=== PATIENT | female | born 1950 | race Caucasian/White ===

== ENCOUNTER 2024-07-22 15:44 | Emergency (ER) | payer OTHER ==
--- OUTSIDE RECORDS SUMMARY | 2024-07-22 15:48 | XMS REPORT | Continuity of Care Document ---
Author Name Unknown Address [address] [facility] [address] [place] [address] [facility] Address [address] [facility] [address] [place] [address] Care Team Providers Care Seat Cover Maker Name Role Phone PCP, PATIENT DOES NOT HAVE A Primary Care Physic vipin Unavailable RACHAEL LEZAMA Attending Clinician Unavailable KENY ACEVEDO Attending Clinician Unavailable Keny Acevedo MD Attending Clinician [phone] Royer Garcia Attending Clinician GC_GCBZW_Kadiyala_S Attending Clinician Unavaila deepak Garcia_Amauri Attending Clinician Unavailable Beata Garcia Attending Clinician Kim Sanford MD Attending Clinician [phone] Ana Maria Navas Attending Clinician [phone] ANA MARIA BROWN Attending Clinician Unavailabl e Doctor Unassigned, Slick Attending Clinician Francisco Palomo DO Attending Clinician [phone] RADIOLOGY Attending Clinician Unavailable KIM CASTELLON Attending Clinician Silvino Kwon MD Attending Clinician [phone] SILVINO EVANS Attending Clinician Unavaildayo e Radiology Attending Clinician Unavailable Kim Castellon MD Attending Clinician + [phone] GC_GCBZW_Kadiyala_S Admitting Clinician Unavaila deepak Dearodriguez_C Admitting Clinician Unavailable Payers Payer Name Policy Type Policy Number Effective Date Expirati on Date Source [employer] MEDICARE ADVANTAGE [id number] 2020 00:00:00 [employer] MEDICARE ADVANTAGE PLAN [id number] 2023 00:00:00 [employer] (MEDICARE REPLACEMENT HMO) [id number] 2022 00:00:00 Problems Condition Name Condition Details Condition Category Status Onset Date Resolution Date Last Treatment Date Treating Clinician Comments Source 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 Active 2018-05 00:00: 00 [facility] Episodic cluster headache, not intractabl e Episodic cluster headache, not intractabl e Disease Active 11-13 00:00: 00 [facility] Muscle spasm Muscle spasm Disease Active 10-12 00:00: 00 [facility] Vaginismus Vaginismus Disease Active 10-12 00:00: 00 [facility] Allergies, Adverse Reactions, Alerts Allergy Name Allergy Type Status Severity Reaction(s) Onset Date Inactive Date Treating Clinician Comments Source MECLIZIN E DRUG INGREDI Active Rash 07-07 00:00: 00 [facility] Meclizin e Propensi ty to adverse reaction s Active Rash 07-07 00:00: 00 [facility] Social History Social Habit Start Date Stop Date Quantity Comments Source Exposure to SARS-CoV-2 (event) Not sure [facility]coholic beverage intake 2021-05-05 00:00:00 2021-05-05 00:00:00 Current non-drinker of alcohol (finding) [facility] Alcohol intake 2021-05-05 00:00:00 2021-05-05 00:00:00 Current non-drinker of alcohol (finding) [facility] History of Social function 2018-12-08 00:00:00 2018-12-08 00:00:00 [facility] Tobacco use and exposure 2017-02-04 00:00:00 2017-02-04 00:00:00 Smokeless tobacco non-user [facility] Sex assigned at 1950 00:00:00 1950 00:00:00 [facility] Smoking Status Start Date Stop Date Source Never smoked tobacco [facility] Medications Ordered Medication Name Filled Medication Name Start Date Stop Date Current Medication? Ordering Clinician Indication Dosage Frequency Signature (SIG) Comments Components Source cyclobenzap rine 5 mg tablet 2020-05 00:00: 00 Yes [id number] 4 5mg Take 1 tablet by mouth at bedtime. [facility] Diclofenac Sodium (VOLTAREN) 1 % gel 2020-05 00:00: 00 Yes [id number] 4 Apply to area(s) 4 (four) times daily. [facility] aspirin 81 mg chewable tablet 2020-05 17:46: 58 Yes 81mg Take 81 mg by mouth at bedtime. [facility] naproxen 500 mg tablet 2020-05 00:00: 00 Yes [id number] 500mg Take 1 tablet by mouth 2 (two) times daily with meals. [facility] donepezil (ARICEPT) 10 mg tablet 01-24 09:34: 13 Yes 10mg Take 10 mg by mouth at bedtime. [facility] memantine (NAMENDA) 10 mg tablet 01-24 09:34: 13 Yes 10mg Take 10 mg by mouth 2 (two) times daily. [facility] DULoxetine 20 mg capsule 01-02 00:00: 00 Yes 20mg 20 mg. [facility] potassium chloride 10 mEq CR tablet 12-12 00:00: 00 Yes 10{tbl} 10 tablets. [facility] traMADol 50 mg tablet 2018-05 007 00:00: 00 05-05 00:00 :00 No [id number] 50mg Take 1 tablet by mouth every 6 (six) hours as needed for Pain (scale 4-6). [facility] losartan 50 mg tablet 01-02 00:00: 00 Yes [id number] 50mg Take 1 tablet by mouth daily. [facility] hydroCHLORO thiazide 12.5 mg capsule 01-02 00:00: 00 Yes [id number] 12.5mg Take 1 capsule by mouth daily. [facility] amlodipine- benazepril 10-20 mg per capsule 09-07 00:00: 00 Yes [id number] TAKE 1 CAPSULE EVERY DAY [facility] atenolol 50 mg tablet 09-07 00:00: 00 Yes [id number] TAKE 1 TABLET EVERY DAY [facility] furosemide 40 mg tablet 09-07 00:00: 00 Yes [id number] TAKE 1 TABLET EVERY DAY [facility] KCL 10 mEq tablet 09-07 00:00: 00 Yes [id number] TAKE 1 TABLET EVERY DAY [facility] oxybutynin chloride 5 mg tablet 09-07 00:00: 00 Yes [id number] TAKE 1 TABLET EVERY DAY [facility] SERTraline 100 mg tablet 09-07 00:00: 00 Yes [id number] 150mg Take 1.5 tablets by mouth daily. [facility] omeprazole 40 mg capsule 09-07 00:00: 00 Yes [id number] 40mg Take 1 capsule by mouth daily. [facility] albuterol 2.5 mg /3 mL (0.083 %) nebulizer solution 07-07 00:00: 00 Yes [id number] 2.5mg Inhale 3 mL every 6 (six) hours as needed for Wheezing or Shortness of Breath. [facility] albuterol 90 mcg/actuati on inhaler 09-16 00:00: 00 Yes [id number] 2{puff} Inhale 2 Puffs every 4 (four) hours as needed for Wheezing or Shortness of Breath. [facility] Vital Signs Vital Name Observation Time Observation Value Comments S ousmane Systolic blood pressure 2021-05-05 22:55:00 165 mm[Hg] [facility] Diastolic blood pressure 2021-05-05 22:55:00 86 mm[Hg] [facility] Heart rate 2021-05-05 22:54:00 76 /min [facility] Body temperature 2021-05-05 22:54:00 37.22 Gaby [facility] Respiratory rate 2021-05-05 22:54:00 20 /min [facility] Body height 2021-05-05 22:54:00 144.8 cm [facility] Body weight 2021-05-05 22:54:00 85.911 kg [facility] BMI 2021-05-05 22:54:00 40.99 kg/m2 [facility] Oxygen saturation in Arterial blood by Pulse oximetry 2021-05-05 22:54:00 98 /min [facility] Encounters Start Date/Time End Date/Time Encounter Type Admission Type Attending Clinicians Care Facility Care Department Encounter ID Source 2020-09-14 04:23:49 Outpatient RACHAEL LEZAMA [facility] [id number] [facility] 2023-10-25 12:22:00 2023-10-25 12:40:00 Emergency X KENY ACEVEDO [facility] ERT [id number] [facility] 2023-10-25 12:22:00 2023-10-25 12:40:00 Emergency Kristina, Keny [facility] 1.2.840.114 350.1.13.10 4.2.7.2.686 [id number] [facility] 2023-06-21 16:00:00 2023-06-21 17:00:00 Annual D2Me Royer Garcia 2.16.840. [id number] [id number] [facility] 2023-03-10 00:00:00 2023-03-10 00:00:00 Outpatient GC_GCBZW_Ka diyala_S PRIV PRIV [id number] [facility] 2023-01-20 00:00:00 2023-01-20 00:00:00 Outpatient Deavers_C AMY DM [id number] [facility] 2022-12-18 14:00:00 2022-12-18 14:30:00 CAV Revisit: Gap Closure & Clinical Check-in Beata Garcia 2.16.840. [id number] [id number] [facility] 2022-12-08 00:00:00 2022-12-08 00:00:00 Outpatient Deavers_C DMG DMG [id number] [facility] 2022-08-24 00:00:00 2022-08-24 00:00:00 Outpatient DMG DMG [id number] [facility] 2022-08-24 00:00:00 2022-08-24 00:00:00 Outpatient DMG DMG [id number] [facility] 2022-06-24 17:30:00 2022-06-24 18:30:00 CAV Beata Garcia 2.16.840. [id number] 2.16.840.1. [id number] DELMIS [facility] 2022-06-19 00:00:00 2022-06-19 00:00:00 Outpatient DMG DMG [id number] [facility] 2022-03-10 00:00:00 2022-03-10 00:00:00 Outpatient DMG DMG [id number] [facility] 2021-05-05 17:00:00 2021-05-05 17:20:00 [facility] 1.2.840.114 350.1.13.10 4.2.7.2.686 [id number] [facility] 2021-05-05 17:00:00 2021-05-05 17:00:00 Outpatient Willie BROWN [facility] [id number] [facility] 2021-05-05 00:00:00 2021-05-05 00:00:00 Orders Only Doctor Unassigned, Slick [facility] 1..114 350.1.13.10 4.2.7.2.686 [id number] [facility] 2021-04-05 18:00:00 2021-04-05 18:08:19 Outpatient R PEG BROWNTANY [facility] [id number] [facility] 2021-04-05 17:39:59 2021-04-05 18:08:19 Urgent Care [facility] 1.84.114 350.1.13.10 4.2.7.2.686 [id number] [facility] 2020-07-15 00:00:00 2020-07-15 00:00:00 Patient Outreach Francisco Salas [facility] 1.84.114 350.1.13.10 4.2.7.2.686 [id number] [facility] 2020-07-03 00:00:00 2020-07-03 00:00:00 Outpatient R RADIOLOGY [facility] [id number] [facility] 2020-06-20 08:00:00 2020-06-20 08:00:00 Outpatient R KIM CASTELLON [facility] [id number] [facility] 2020-01-25 09:17:23 2020-01-25 10:07:07 Office Visit Silvino Evans [facility] 1.84.114 350.1.13.10 4.2.7.2.686 [id number] [facility] 2020-01-25 09:15:00 2020-01-25 09:15:00 Outpatient R SILVINO EVANS [facility] [id number] [facility] 2020-01-23 00:00:00 2020-01-23 00:00:00 Orders Only Doctor Unassigned, Slick [facility] 1.2.840.114 350.1.13.10 4.2.7.2.686 [id number] [facility] 2019-12-13 14:55:16 2019-12-13 23:59:00 Hospital Encounter Radiology [facility] 1.2.840.114 350.1.13.10 4.2.7.2.686 [id number] 2019-12-13 14:55:16 2019-12-13 23:59:00 Hospital Encounter Radiology [facility] 1.2.840.114 350.1.13.10 4.2.7.2.686 [id number] [facility] 2019-12-13 00:00:00 2019-12-13 00:00:00 Outpatient R RADIOLOGY [facility] [id number] [facility] 2019-01-02 00:00:00 2019-01-02 00:00:00 Refill Yuniorarabella [facility] 1.2840.114 350.1.13.10 4.2.7.2.686 [id number] 2019-01-02 00:00:00 2019-01-02 00:00:00 Refill Yuniorarabella [facility] 1.2840.114 350.1.13.10 4.2.7.2.686 [id number] [facility] 2018-12-27 00:00:00 2018-12-27 00:00:00 Telephone Jamison [facility] 1.2840.114 350.1.13.10 4.2.7.2.686 [id number] 2018-12-27 00:00:00 2018-12-27 00:00:00 Telephone Yuniorarabella [facility] 1.2840.114 350.1.13.10 4.2.7.2.686 [id number] [facility] 2018-12-21 00:00:00 2018-12-21 00:00:00 Telephone Kim Castellon [facility] 1.2.840.114 350.1.13.10 4.2.7.2.686 [id number] 2018-12-21 00:00:00 2018-12-21 00:00:00 Telephone Kim Castellon [facility] 1.2.840.114 350.1.13.10 4.2.7.2.686 [id number] [facility] 2018-12-16 10:00:00 2018-12-16 23:59:00 Hospital Encounter Jamison [facility] 1.2.840.114 350.1.13.10 4.2.7.2.686 [id number] 2018-12-16 10:00:00 2018-12-16 23:59:00 Hospital Encounter Jamison [facility] 1.2.840.114 350.1.13.10 4.2.7.2.686 [id number] [facility] 2018-12-16 00:00:00 2018-12-16 00:00:00 Orders Only Doctor Unassigned, Slick [facility] 1.2.840.114 350.1.13.10 4.2.7.2.686 [id number] 2018-12-16 00:00:00 2018-12-16 00:00:00 Telephone Jamison [facility] 1.2.840.114 350.1.13.10 4.2.7.2.686 [id number] 2018-12-16 00:00:00 2018-12-16 00:00:00 Orders Only Doctor Unassigned, Slick [facility] 1.2.840.114 350.1.13.10 4.2.7.2.686 [id number] [facility] 2018-12-16 00:00:00 2018-12-16 00:00:00 Telephone Kim Castellon [facility] 1.2.840.114 350.1.13.10 4.2.7.2.686 [id number] [facility] 2018-12-13 00:00:00 2018-12-13 00:00:00 Telephone Kim Castellon [facility] 1.2.840.114 350.1.13.10 4.2.7.2.686 [id number] 2018-12-13 00:00:00 2018-12-13 00:00:00 Telephone Kim Castellon [facility] 1.2.840.114 350.1.13.10 4.2.7.2.686 [id number] [facility] 2018-12-12 00:00:00 2018-12-12 00:00:00 Refill Kim Castellon [facility] 1.2.840.114 350.1.13.10 4.2.7.2.686 [id number] 2018-12-12 00:00:00 2018-12-12 00:00:00 Refill Jamison [facility] 1.2840.114 350.1.13.10 4.2.7.2.686 [id number] [facility] 2018-12-08 10:20:30 2018-12-08 10:48:37 Office Visit Jamison [facility] 1.2.840.114 350.1.13.10 4.2.7.2.686 [id number] 2018-12-08 10:20:30 2018-12-08 10:48:37 Office Visit Kim Castellon [facility] 1.2840.114 350.1.13.10 4.2.7.2.686 [id number] [facility] 2018-12-08 00:00:00 2018-12-08 00:00:00 Orders Only Doctor Unassigned, Slick [facility] 1.2840.114 350.1.13.10 4.2.7.2.686 [id number] [facility] Notes Date/Time Note Provider Source 2023-10-25 12:23:20 Called patient from hospital for behavioral medicine at 7 minutes after arrival and registration said she decided to leave. LWBS Shiva Viera RN [facility] 2023-10-25 12:14:00 [facility] Emergency Department Note Patient Name: Shasha Kuo Date of : 1950 73 year old female Treatment Room: Room/bed info not found Primary Care Physician: No primary care provider on file. Patient left prior to triage after being in the ER rica for 7 minutes, Electronically signed by: Keny Acevedo MD 10/25/23 1227 [facility] EMERGENCY PHYSICIAN STAFF [facility]
[2024-07-22] MEDS ORDERED: ONDANSETRON 4 MG/2 ML VIAL ONE (16:01)
[2024-07-22] MEDS ORDERED: MORPHINE 4 MG/ML SYR ONE (16:02)
[2024-07-22 16:31] LABS: Absolute Eosinophils 0.1 K/uL (0-0.5); Absolute Lymphocytes (CBC) 2.4 K/uL (0.7-4.9); Absolute Monocytes 0.6 K/uL (0.1-1.3); Absolute Neutrophil 4.1 K/uL (1.8-8.0); Basophils % 0.3 % (0-1.3); Eosinophils % 1.7 % (0-4.4); Hematocrit 37.2 % (36.0-45.0); Hemoglobin 12.7 g/dL (12.0-15.0); Lymphocytes % 33.6 % (15.3-44.8); MCH 27.7 pg (27.0-35.0); MCHC 34.2 g/dL (32.0-36.0); MPV 8.6 fL (7.6-11.3); Neutrophils % 56.4 % (41.7-73.7); Platelets 287 thou/uL (152-406); RBC Red Blood Cell Count 4.59 M/uL (3.86-4.86); Red Cell Distribution Width 14.8 % (12.1-15.2)
--- NOTE | 2024-07-22 16:46 | RAD REPORT ---
EXAMINATION: CT ABDOMEN AND PELVIS WITHOUT CONTRAST CLINICAL INDICATION: FLANK PAIN TECHNIQUE: CT abdomen and pelvis was performed, without IV contrast, as per department protocol. Axia l, sagittal and coronal reconstructions were obtained. One or more of the following dose reduction techniques were used: Automated exposure control, adjustment of the mA and kV according to the patien t size, and iterative reconstruction. Unless otherwise specified, incidental findings do not require dedicated imaging follow-up. COMPARISON: No prior exam. FINDINGS: The lack of intravenous contrast limits the sensitivity of this exam for evaluation of solid visceral organs, vascular structures, and retroperitoneum. LOWER CHEST: The visualized lung bases are clear. LIVER:Normal in size and contour. No focal lesion. Cholecystectomy clips. SPLEEN: Normal size. No focal lesion. PANCREAS: No mass, ductal dilation, or [place]-pancreatic fluid. ADRENALS: Normal; no mass. KIDNEYS AND URETERS: Normal size and contour. No hydronephrosis. URINARY BLADDER: Normal contour. GASTROINTESTINAL TRACT: No evidence of bowel obstruction, significant free fluid, free air or abscess . Prominent sigmoid diverticulosis coli is present with moderate stool in the colon. APPENDIX: Appendix not visualized, but no inflammatory changes in region of appendix. LYMPH NODES: No lymphadenopathy. MUSCULOSKELETAL: Mild to moderate lower lumbar spondylosis. ADDITIONAL FINDINGS: None. IMPRESSION: No acute or concerning abnormalities in the abdomen or pelvis, with evaluation limited by lack of IV contrast.
[2024-07-22 16:48] LABS: Albumin 3.8 g/dL (3.4-5.0); Albumin/Globulin Ratio 1.1 (1.1-1.8); Anion Gap 8.7 mEq/L (5.0-15.0); Bilirubin Total 0.4 mg/dL (0.2-1.0); Globulin 3.6 g/dL (2.3-3.5); Potassium 3.7 mEq/L (3.5-5.1); Protein, Total 7.4 g/dL (6.4-8.2)
[2024-07-22 17:20] LABS: Specific Gravity > 1.030 (1.005-1.030); Sqamous Epithelial <5 /HPF (None Seen); Urine Bacteria <20 /HPF (<20); Urine Bilirubin NEGATIVE (Negative); Urine Blood Trace (Negative); Urine Clarity Turbid (Clear); Urine Color Yellow (Yellow); Urine Crystals Unidentified Few /HPF (None Seen); Urine Culture Reflex Order NOT NEEDED; Urine Glucose NEGATIVE (Negative); Urine Ketones TRACE (Negative); Urine Microscopic Reflex YN ORDER UMIC; Urine Mucus 1+ /HPF (None Seen); Urine Nitrite NEGATIVE (Negative); Urine Protein 1+ (Negative); Urine Urobilinogen 1+ (Normal); Urine WBC <5 /HPF (<5); Urine Yeast (Budding) Trace /HPF (None Seen)
[2024-07-22] MEDS ORDERED: CYCLOBENZAPRINE 10 MG TAB ONE (17:24)
[2024-07-22] MEDS ORDERED: KETOROLAC 30 MG/ML INJ ONE (17:24)
--- NOTE | 2024-07-22 17:31 | EDPHYS ---
Physician Documentation [facility] Name: Nelly Kuo Age: 74 yrs Sex: Female : 1950 Arrival Date: 07/22/2024 Time: 15:44 Bed 20 Private MD: ED Physician Keven Leigh HPI: 07/22 16:37 This 74 yrs old Female presents to ER via Ambulatory with complaints of Flank Pain. 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 Denies urinary symptoms, fever, n/v/d. . Historical: - Allergies: 15:53 No Known Allergies; aa5 - PMHx: 15:53 Hypertensive disorder; aa5 - PSHx: 15:53 section; hysterectomy; jose martin knee replacement; Cholecystectomy; aa5 - Immunization history:: Adult Immunizations unknown. - Infectious Disease History:: Denies. - Social history:: Smoking status: Patient denies any tobacco usage or history of. ROS: 16:37 Constitutional: As per HPI kb Exam: 16:37 Constitutional: This is a well developed, well nourished patient who is awake, alert, kb and in no acute distress. Head/Face: Normocephalic, atraumatic. ENT: Moist Mucous membranes Cardiovascular: Regular rate Respiratory: Respirations even and unlabored. No increased work of breathing. Talking in full sentences Abdomen/GI: Soft, non-tender. No distention Skin: Warm, dry with normal turgor. Normal color. MS/ Extremity: Pulses equal, no cyanosis. Neurovascular intact. Full, normal range of motion. Neuro: Awake and alert, GCS 15, oriented to person, place, time, and situation. 16:37 Back: pain, that is moderate, of the right mid back, with muscle spasms, CVA tenderness, that is mild, is noted on the right, Vital Signs: 15:53 Pulse 83; Resp 16 S; Temp 97.2(TE); Pulse Ox 99% on R/A; Weight 90.26 kg (R); Height 5 aa5 ft. 11 in. (R); 15:58 bp 18:30 BP 157 / 89; Pulse 85; Resp 16; Temp 98.1; Pulse Ox 95% ; bp 15:53 Body Mass Index 27.75 (90.26 kg, 180.34 cm) aa5 15:58 PT REFUSING BP MEASUREMENT "IT'S TOO TIGHT, I JUST CAN'T DO IT" bp MDM: 15:47 Medical Screening Exam initiated kb 16:38 Differential diagnosis: nephrolithiasis, UTI, muscle spasm, strain. Data reviewed: kb vital signs, nurses notes. Historians other than the Patient: Spouse/Significant Other: spouse. 17:30 Counseling: I had a detailed discussion with the patient and/or guardian regarding the kb historical points, exam findings, and any diagnostic results supporting the discharge/admit diagnosis, lab results, radiology results, the need for outpatient follow up, a family practitioner, to return to the emergency department if symptoms worsen or persist or if there are any questions or concerns that arise at home. 07/22 15:53 Order name: CBC with Diff; Complete Time: 16:32 kb 07/22 15:53 Order name: CMP; Complete Time: 16:50 kb 07/22 15:53 Order name: Urinalysis w/ reflexes; Complete Time: 17:20 kb 07/22 15:53 Order name: CT Stone Protocol; Complete Time: 16:47 kb 07/22 15:53 Order name: IV Saline Lock; Complete Time: 16:22 kb 07/22 15:53 Order name: Labs collected and sent; Complete Time: 16:22 kb Administered Medications: 16:23 Drug: Ondansetron IVP 4 mg IVP once; over 2 minutes Route: IVP; Site: left forearm; bp 17:28 Follow up: Response: No adverse reaction bp 16:24 Drug: morphine IVP or IV 4 mg IVP once over 4 mins Route: IVP; Infused Over: 4 mins; bp Site: left forearm; 17:28 Follow up: Response: No adverse reaction bp 17:28 Drug: Ketorolac IVP 15 mg IVP once Route: IVP; Site: left forearm; bp 17:28 Follow up: Response: No adverse reaction bp 17:28 Drug: Cyclobenzaprine PO 10 mg PO once Route: PO; bp 17:28 Follow up: Response: No adverse reaction bp Disposition: 19:14 Co-signature as Attending Physician, Keven Leigh MD I reviewed the patient's care rt provided by the Advanced Practice Provider and agree with the diagnosis and treatment plan. Disposition Summary: 07/22/24 17:31 Discharge Ordered Notes: Location: Home kb Condition: Stable kb Diagnosis - Low back pain kb Followup: kb - With: Emergency Department - When: As needed - Reason: Worsening of condition Followup: kb - With: Private Physician - When: 2 - 3 days - Reason: Recheck today's complaints, Continuance of care, Re-evaluation by your physician Discharge Instructions: - Discharge Summary Sheet kb - Acute Back Pain, Adult kb Forms: - Medication Reconciliation Form kb - Antibiotic Education kb - Prescription Opioid Use kb - Patient Portal Instructions kb - Leadership Thank You Letter Prescriptions: - Diclofenac Sodium 75 mg Oral tablet, delayed release (enteric coated) - take 1 tablet ORAL route 2 times per day As needed; 30 tablet; Refills: 0, Product Selection Permitted - orphenadrine citrate 100 mg Oral Tablet Sustained Release - take 1 tablet ORAL route 2 times per day As needed; 20 tablet; Refills: 0, kb Product Selection Permitted Signatures: Dispatcher [employer] Kelley Ferris, COMMUNICATIONS BILLING ANALYST-C COMMUNICATIONS BILLING ANALYST-Helena Antonio, RN RN aa5 Alejandro Triplett, ASTER RN bp Keven Leigh MD MD rt
--- NOTE | 2024-07-22 17:31 | ER ---
Nurse's Notes [facility] Name: Nelly Kuo Age: 74 yrs Sex: Female : 1950 Arrival Date: 07/22/2024 Time: 15:44 Bed 20 Private MD: Diagnosis: Low back pain Presentation: 07/22 15:53 Chief complaint: Patient states: right back pain that began yesterday and worse today. aa5 Coronavirus screen: At this time, the client does not indicate any symptoms associated with coronavirus-19. Ebola Screen: Patient denies travel to an Ebola-affected area in the 21 days before illness onset. Initial Sepsis Screen: Does the patient meet any 2 criteria? No. Patient's initial sepsis screen is negative. Does the patient have a suspected source of infection? No. Patient's initial sepsis screen is negative. Risk Assessment: Do you want to hurt yourself or someone else? Patient reports no desire to harm self or others. Onset of symptoms was July 2024. 15:53 Method Of Arrival: Ambulatory aa5 15:53 Acuity: SERENA 3 aa5 Triage Assessment: 16:00 General: Appears in no apparent distress. uncomfortable, obese, Behavior is bp cooperative, appropriate for age, agitated, anxious. Pain: Complains of pain in right mid back. EENT: No deficits noted. Neuro: No deficits noted. Cardiovascular: No deficits noted. Respiratory: No deficits noted. GI: No signs and/or symptoms were reported involving the gastrointestinal system. : No signs and/or symptoms were reported regarding the genitourinary system. Derm: No deficits noted. Musculoskeletal: No deficits noted. Historical: - Allergies: 15:53 No Known Allergies; aa5 - PMHx: 15:53 Hypertensive disorder; aa5 - PSHx: 15:53 section; hysterectomy; jose martin knee replacement; Cholecystectomy; aa5 - Immunization history:: Adult Immunizations unknown. - Infectious Disease History:: Denies. - Social history:: Smoking status: Patient denies any tobacco usage or history of. Screenin:31 [facility] ED Fall Risk Assessment (Adult) History of falling in the last 3 months, bp including since admission No falls in past 3 months (0 pts) Confusion or Disorientation No (0 pts) Intoxicated or Sedated No (0 pts) Impaired Gait No (0 pts) Mobility Assist Device Used No (0 pt) Altered Elimination No (0 pt) Score/Fall Risk Level 0 - 2 = Low Risk Oriented to surroundings. Abuse screen: Denies threats or abuse. Denies injuries from another. Nutritional screening: No deficits noted. Tuberculosis screening: No symptoms or risk factors identified. Assessment: 16:00 General: Appears distressed, uncomfortable, Behavior is cooperative, appropriate for bp age, agitated, anxious. 17:30 Reassessment: Patient appears in no apparent distress at this time. Patient is alert, bp oriented x 3, equal unlabored respirations, skin warm/dry/pink. Vital Signs: 15:53 Pulse 83; Resp 16 S; Temp 97.2(TE); Pulse Ox 99% on R/A; Weight 90.26 kg (R); Height 5 aa5 ft. 11 in. (R); 15:58 bp 18:30 BP 157 / 89; Pulse 85; Resp 16; Temp 98.1; Pulse Ox 95% ; bp 15:53 Body Mass Index 27.75 (90.26 kg, 180.34 cm) aa5 15:58 PT REFUSING BP MEASUREMENT "IT'S TOO TIGHT, I JUST CAN'T DO IT" bp ED Course: 15:46 Patient arrived in ED. bp 15:46 Kelley Reyes FNP-C is PHCP. kb 15:46 Keven Leigh MD is Attending Physician. kb 15:52 Arm band placed on Patient placed in an exam room, on a stretcher. aa5 15:54 Triage completed. aa5 15:56 Alejandro Triplett, ASTER is Primary Nurse. bp 16:21 Initial lab(s) drawn, by me, sent to lab. Inserted saline lock: 22 gauge in left bp forearm, using aseptic technique. Blood collected. Flushed with 10 mL NS. 16:34 CT Stone Protocol In Process Unspecified. EDMS 17:31 Patient has correct armband on for positive identification. bp 18:40 No provider procedures requiring assistance completed. IV discontinued, intact, bp bleeding controlled, No redness/swelling at site. Pressure dressing applied. Administered Medications: 16:23 Drug: Ondansetron IVP 4 mg IVP once; over 2 minutes Route: IVP; Site: left forearm; bp 17:28 Follow up: Response: No adverse reaction bp 16:24 Drug: morphine IVP or IV 4 mg IVP once over 4 mins Route: IVP; Infused Over: 4 mins; bp Site: left forearm; 17:28 Follow up: Response: No adverse reaction bp 17:28 Drug: Ketorolac IVP 15 mg IVP once Route: IVP; Site: left forearm; bp 17:28 Follow up: Response: No adverse reaction bp 17:28 Drug: Cyclobenzaprine PO 10 mg PO once Route: PO; bp 17:28 Follow up: Response: No adverse reaction bp Outcome: 17:31 Discharge ordered by . kb 18:40 Discharged to home ambulatory, with family, bp 18:40 Condition: stable 18:40 Discharge instructions given to patient, Instructed on discharge instructions, follow up and referral plans. medication usage, Demonstrated understanding of instructions, follow-up care, medications, Prescriptions given X 2, 18:52 Patient left the ED. bp Signatures: Dispatcher [employer] EDMS Kelley Reyes, NOE BABIN-Helena Antonio, RN RN aa5 Alejandro Triplett, RN RN bp
[2024-07-22 18:57] VITALS: BP 157/89; TEMP 98.1; O2SAT 95
== END 2024-07-22 18:52 | disposition home or self-care (01) ==
LOC: ER 15:44 → SUPCPDRO 15:44 → ER 18:52
DX: M54.50 Low back pain, unspecified (principal)
CPT/HCPCS: 85025; 81001; 36415; 80053; 76377; 74176; 96375; 96374; 99284; J2405